=== PATIENT | female | born 1980 | race Two or more races ===

== ENCOUNTER 2019-08-09 10:22 | Emergency (ER) | payer OTHER ==
[~2019-08-09] VITALS: Ht 152.4 cm; Wt 68.0 kg
== END 2019-08-09 14:02 | disposition home or self-care (01) ==
LOC: ER 10:22
DX: S92.345A Nondisplaced fracture of fourth metatarsal bone, left foot, initial encounter for closed fracture (principal); W01.198A Fall on same level from slipping, tripping and stumbling with subsequent striking against other object, initial encounter; Y93.01 Activity, walking, marching and hiking; Y92.480 Sidewalk as the place of occurrence of the external cause; Y99.8 Other external cause status